=== PATIENT | female | born 1945 | race Caucasian/White ===

== ENCOUNTER 2019-03-09 18:14 | Inpatient (IN) | payer MEDICARE, OTHER ==
[~2019-03-09] VITALS: Ht 162.6 cm; Wt 93.0 kg
[2019-03-09 18:53] LABS: BASOPHILS # (AUTO) 0.1 K/uL (0.0-8.0); BASOPHILS % (AUTO) 0.6 % (0.0-2.0); EOSINOPHILS # (AUTO) 0.1 K/uL (0.0-0.7); EOSINOPHILS % (AUTO) 0.4 % (0.0-7.0); HEMATOCRIT 41.6 % (31.2-41.9); HEMOGLOBIN 13.9 g/dL (10.9-14.3); LYMPHOCYTES # (AUTO) 2.1 K/uL (20.0-40.0); LYMPHOCYTES % (AUTO) 17.1 % (20.5-51.5); MEAN CORPUSCULAR HEMOGLOBIN 31.7 uug (24.7-32.8); MEAN CORPUSCULAR HGB CONC 33 g/dL (32.3-35.6); MONOCYTES # (AUTO) 0.8 K/uL (2.0-10.0); MONOCYTES % (AUTO) 6.3 % (0.0-11.0); NEUTROPHILS # (AUTO) 9.4 K/uL (1.8-8.9); NEUTROPHILS % (AUTO) 75.6 % (38.5-71.5); PLATELET COUNT (AUTO) 193 K/uL (179-408); RED BLOOD CELL COUNT(AUTO) 4.38 MIL/uL (3.63-4.92); WHITE BLOOD COUNT (AUTO) 12.4 K/uL (3.8-11.8)
[2019-03-09] MEDS ORDERED: BISA10SU12 RC (18:56)
[2019-03-09] MEDS ORDERED: LORA0.5T PO (18:56)
[2019-03-09] MEDS ORDERED: MAGN400O6 PO (18:56)
[2019-03-09] MEDS ORDERED: DIVA250T PO (18:56)
[2019-03-09] MEDS ORDERED: ROPI1TAB4 PO (18:56)
[2019-03-09] MEDS ORDERED: AMAN100T PO (18:56)
[2019-03-09] MEDS ORDERED: ACET325T53 PO (18:56)
[2019-03-09] MEDS ORDERED: QUET100T PO (18:56)
[2019-03-09] MEDS ORDERED: SENN-168 PO (18:56)
[2019-03-09] MEDS ORDERED: MULT-213 PO (18:56)
[2019-03-09 18:59] LABS: CARBON DIOXIDE 30 mmol/L (21-32); CHLORIDE 98 mmol/L (98-107); CREATININE 1.5 mg/dL (0.6-1.3); GLUCOSE 105 mg/dL (74-106); POTASSIUM 4.1 mmol/L (3.5-5.1); UREA NITROGEN, BLOOD 36 mg/dL (7-18)
[2019-03-09 19:04] LABS: ETHANOL < 3 MG/DL (0-0)
[2019-03-09 19:05] LABS: ALANINE AMINOTRANSFERASE 16 U/L (14-59); ALKALINE PHOSPHATASE 82 U/L (50-136); ASPARTATE AMINOTRANSFERASE 18 U/L (15-37); BILIRUBIN,DIRECT 0.1 mg/dL (0.0-0.2); BILIRUBIN,TOTAL 0.3 mg/dL (0.2-1.0); TOTAL PROTEIN, SERUM 8.1 g/dL (6.4-8.2)
[2019-03-09 19:07] LABS: ACETAMINOPHEN < 2.0 ug/mL (10-30)
[2019-03-09] MEDS ORDERED: QUETIAPINE FUMARATE 100 MG TABLET ONE (20:40)
[2019-03-09] MEDS ORDERED: QUETIAPINE FUMARATE 25 MG TABLET PO ONE (20:45)
[2019-03-09] MEDS ORDERED: ACETAMINOPHEN 325 MG TABLET PO PRN (21:45)
[2019-03-09] MEDS ORDERED: ZOLPIDEM 5 MG TABLET PO PRN (21:45)
[2019-03-09] MEDS ORDERED: LORAZEPAM 1 MG TABLET PO PRN (21:45)
[2019-03-09] MEDS ORDERED: MAGNESIUM HYDROXIDE 30 ML LIQUID UDC PO PRN ×2 (21:45→22:30)
[2019-03-09] MEDS ORDERED: MAG HYDROX/AL HYDROX/SIMETH 30 ML LIQUID UDC PO PRN (21:45)
[2019-03-09] MEDS ORDERED: BISACODYL 10 MG SUPP.RECT RC PRN (22:30)
[2019-03-09 23:08] VITALS: BP 126/64
[2019-03-10] MEDS ORDERED: Medication Not On Formulary EA (Multivitamins W-Minerals (Multivitamin With Minerals) 1 PO SCH (09:00)
[2019-03-10] MEDS: NICOTINE 14 MG/24HR PATCH TD SCH (09:00)
[2019-03-10] MEDS: MULTIVIT, IRON, MIN NO. 8, FA TABLET PO SCH (09:00)
[2019-03-10] MEDS ORDERED: OLANZAPINE 10 MG VIAL IM ONE (14:30)
[2019-03-10] MEDS ORDERED: HALOPERIDOL 2 MG TABLET PO SCH (17:00)
[2019-03-10] MEDS: BENZTROPINE MESYLATE 0.5 MG TABLET PO SCH (17:00)
[2019-03-10] MEDS: DIVALPROEX 250 MG TABLET.DR PO SCH (17:00)
[2019-03-10] MEDS: ropiniROLE 1 MG TABLET PO SCH (18:00)
[2019-03-10] MEDS: SENNOSIDES 1 TABLET PO SCH (21:00)
[2019-03-10] MEDS ORDERED: HALOPERIDOL LACTATE 5 MG/1 ML VIAL IM ONE (23:00)
[2019-03-10] MEDS ORDERED: diphenhydrAMINE 50 MG/1 ML VIAL IM ONE (23:00)
[2019-03-10] MEDS ORDERED: LORAZEPAM 2 MG/1 ML VIAL IM ONE (23:00)
[2019-03-11] MEDS: NICOTINE 14 MG/24HR PATCH TD SCH (09:00)
[2019-03-11] MEDS: DIVALPROEX 250 MG TABLET.DR PO SCH ×3 (09:00→17:00)
[2019-03-11] MEDS: HALOPERIDOL LACTATE 10 MG/5 ML ORAL SOLUTION UDC PO SCH ×3 (09:00→17:00)
[2019-03-11] MEDS: MULTIVIT, IRON, MIN NO. 8, FA TABLET PO SCH (09:00)
[2019-03-11] MEDS: BENZTROPINE MESYLATE 0.5 MG TABLET PO SCH ×3 (09:00→17:00)
[2019-03-11] MEDS: ropiniROLE 1 MG TABLET PO SCH (17:46)
[2019-03-11] MEDS: SENNOSIDES 1 TABLET PO SCH (21:00)
[2019-03-12] MEDS: MULTIVIT, IRON, MIN NO. 8, FA TABLET PO SCH (09:00)
[2019-03-12] MEDS: DIVALPROEX 250 MG TABLET.DR PO SCH ×3 (09:00→17:00)
[2019-03-12] MEDS: NICOTINE 14 MG/24HR PATCH TD SCH (09:00)
[2019-03-12] MEDS: BENZTROPINE MESYLATE 0.5 MG TABLET PO SCH ×3 (09:00→17:00)
[2019-03-12] MEDS: HALOPERIDOL LACTATE 10 MG/5 ML ORAL SOLUTION UDC PO SCH ×3 (09:00→17:00)
[2019-03-12] MEDS: ropiniROLE 1 MG TABLET PO SCH (18:00)
[2019-03-12 20:07] VITALS: BP 177/96
[2019-03-12] MEDS: SENNOSIDES 1 TABLET PO SCH (20:38)
[2019-03-13] MEDS ORDERED: LORAZEPAM 2 MG/1 ML VIAL IM STA (02:47)
[2019-03-13] MEDS ORDERED: HALOPERIDOL LACTATE 5 MG/1 ML VIAL IM STA (02:47)
[2019-03-13] MEDS ORDERED: diphenhydrAMINE 50 MG/1 ML VIAL IM STA (02:48)
[2019-03-13 08:00] VITALS: BP 156/80
[2019-03-13] MEDS: MULTIVIT, IRON, MIN NO. 8, FA TABLET PO SCH (09:00)
[2019-03-13] MEDS: DIVALPROEX 250 MG TABLET.DR PO SCH ×3 (09:00→17:00)
[2019-03-13] MEDS: HALOPERIDOL LACTATE 10 MG/5 ML ORAL SOLUTION UDC PO SCH ×5 (09:00→17:00)
[2019-03-13] MEDS: NICOTINE 14 MG/24HR PATCH TD SCH ×2 (09:00→12:27)
[2019-03-13] MEDS: BENZTROPINE MESYLATE 0.5 MG TABLET PO SCH ×3 (09:00→17:00)
[2019-03-13 16:00] VITALS: BP 160/63
[2019-03-13] MEDS: ropiniROLE 1 MG TABLET PO SCH (17:03)
[2019-03-13] MEDS: SENNOSIDES 1 TABLET PO SCH (20:03)
[2019-03-14] MEDS: NICOTINE 14 MG/24HR PATCH TD SCH (08:53)
[2019-03-14] MEDS: BENZTROPINE MESYLATE 0.5 MG TABLET PO SCH ×3 (08:53→17:00)
[2019-03-14] MEDS: DIVALPROEX 250 MG TABLET.DR PO SCH ×3 (08:53→17:00)
[2019-03-14] MEDS: MULTIVIT, IRON, MIN NO. 8, FA TABLET PO SCH (08:53)
[2019-03-14] MEDS: HALOPERIDOL LACTATE 10 MG/5 ML ORAL SOLUTION UDC PO SCH ×3 (08:53→17:00)
[2019-03-14] MEDS: AMLODIPINE 5 MG TABLET PO SCH (16:15)
[2019-03-14] MEDS: ropiniROLE 1 MG TABLET PO SCH (17:09)
[2019-03-14] MEDS: SENNOSIDES 1 TABLET PO SCH (21:00)
[2019-03-15] MEDS: NICOTINE 14 MG/24HR PATCH TD SCH (09:00)
[2019-03-15] MEDS: HALOPERIDOL LACTATE 10 MG/5 ML ORAL SOLUTION UDC PO SCH ×3 (09:00→16:56)
[2019-03-15] MEDS: AMLODIPINE 5 MG TABLET PO SCH (09:00)
[2019-03-15] MEDS: MULTIVIT, IRON, MIN NO. 8, FA TABLET PO SCH (09:00)
[2019-03-15] MEDS: BENZTROPINE MESYLATE 0.5 MG TABLET PO SCH (09:00)
[2019-03-15] MEDS: DIVALPROEX 250 MG TABLET.DR PO SCH ×3 (09:00→16:56)
[2019-03-15] MEDS: HALOPERIDOL LACTATE 5 MG/1 ML VIAL IM PRN ×3 (10:01→16:57)
[2019-03-15] MEDS: BENZTROPINE MESYLATE 1 MG TABLET PO SCH (16:56)
[2019-03-15] MEDS: diphenhydrAMINE 50 MG/1 ML VIAL IM PRN (16:57)
[2019-03-15] MEDS ORDERED: BENZTROPINE MESYLATE 0.5 MG TABLET PO SCH (17:00)
[2019-03-15] MEDS: ropiniROLE 1 MG TABLET PO SCH (17:35)
[2019-03-15] MEDS: SENNOSIDES 1 TABLET PO SCH (20:07)
[2019-03-16] MEDS: DIVALPROEX 250 MG TABLET.DR PO SCH ×3 (09:00→16:59)
[2019-03-16] MEDS: BENZTROPINE MESYLATE 1 MG TABLET PO SCH ×2 (09:00→16:59)
[2019-03-16] MEDS: NICOTINE 14 MG/24HR PATCH TD SCH (09:00)
[2019-03-16] MEDS: MULTIVIT, IRON, MIN NO. 8, FA TABLET PO SCH (09:00)
[2019-03-16] MEDS: HALOPERIDOL LACTATE 10 MG/5 ML ORAL SOLUTION UDC PO SCH ×3 (09:00→17:00)
[2019-03-16] MEDS: AMLODIPINE 5 MG TABLET PO SCH (09:00)
[2019-03-16] MEDS: HALOPERIDOL LACTATE 5 MG/1 ML VIAL IM PRN ×3 (09:46→17:03)
[2019-03-16] MEDS: diphenhydrAMINE 50 MG/1 ML VIAL IM PRN ×3 (09:47→17:03)
[2019-03-16] MEDS: ropiniROLE 1 MG TABLET PO SCH (18:00)
[2019-03-16] MEDS: SENNOSIDES 1 TABLET PO SCH (20:27)
[2019-03-17] MEDS: AMLODIPINE 5 MG TABLET PO SCH (09:00)
[2019-03-17] MEDS: MULTIVIT, IRON, MIN NO. 8, FA TABLET PO SCH (09:00)
[2019-03-17] MEDS: DIVALPROEX 250 MG TABLET.DR PO SCH ×3 (09:00→17:00)
[2019-03-17] MEDS: HALOPERIDOL LACTATE 10 MG/5 ML ORAL SOLUTION UDC PO SCH ×4 (09:00→21:00)
[2019-03-17] MEDS: NICOTINE 14 MG/24HR PATCH TD SCH (09:00)
[2019-03-17] MEDS: BENZTROPINE MESYLATE 1 MG TABLET PO SCH ×2 (09:00→17:00)
[2019-03-17] MEDS: HALOPERIDOL LACTATE 5 MG/1 ML VIAL IM PRN ×2 (17:06→21:31)
[2019-03-17] MEDS: diphenhydrAMINE 50 MG/1 ML VIAL IM PRN ×2 (17:06→21:32)
[2019-03-17] MEDS ORDERED: ropiniROLE 1 MG TABLET PO SCH (18:00)
[2019-03-17 20:18] VITALS: BP 139/82
[2019-03-17] MEDS: SENNOSIDES 1 TABLET PO SCH (21:00)
[2019-03-18] MEDS: NICOTINE 14 MG/24HR PATCH TD SCH (09:00)
[2019-03-18] MEDS: BENZTROPINE MESYLATE 1 MG TABLET PO SCH ×2 (09:28→17:08)
[2019-03-18] MEDS: DIVALPROEX 250 MG TABLET.DR PO SCH ×3 (09:29→17:08)
[2019-03-18] MEDS: MULTIVIT, IRON, MIN NO. 8, FA TABLET PO SCH (09:29)
[2019-03-18] MEDS: HALOPERIDOL LACTATE 10 MG/5 ML ORAL SOLUTION UDC PO SCH ×4 (09:30→21:00)
[2019-03-18] MEDS: AMLODIPINE 5 MG TABLET PO SCH (09:35)
[2019-03-18 20:55] VITALS: BP 130/65
[2019-03-18] MEDS: SENNOSIDES 1 TABLET PO SCH (21:00)
[2019-03-18] MEDS: HALOPERIDOL LACTATE 5 MG/1 ML VIAL IM PRN (21:58)
[2019-03-18] MEDS: diphenhydrAMINE 50 MG/1 ML VIAL IM PRN (21:59)
[2019-03-19] MEDS: DIVALPROEX 250 MG TABLET.DR PO SCH ×3 (08:35→17:57)
[2019-03-19] MEDS: HALOPERIDOL LACTATE 10 MG/5 ML ORAL SOLUTION UDC PO SCH ×4 (08:36→21:00)
[2019-03-19] MEDS: AMLODIPINE 5 MG TABLET PO SCH (08:36)
[2019-03-19] MEDS: BENZTROPINE MESYLATE 1 MG TABLET PO SCH ×2 (08:36→17:57)
[2019-03-19] MEDS: NICOTINE 14 MG/24HR PATCH TD SCH (08:37)
[2019-03-19] MEDS: MULTIVIT, IRON, MIN NO. 8, FA TABLET PO SCH (08:37)
[2019-03-19] MEDS ORDERED: HALOPERIDOL DECANOATE 50 MG/1 ML AMPUL IM ONE (08:45)
[2019-03-19] MEDS ORDERED: OLANZAPINE 10 MG VIAL IM ONE (13:00)
[2019-03-19 20:25] VITALS: BP 116/84
[2019-03-19] MEDS: SENNOSIDES 1 TABLET PO SCH (21:00)
[2019-03-19] MEDS: HALOPERIDOL LACTATE 5 MG/1 ML VIAL IM PRN (21:07)
[2019-03-19] MEDS: diphenhydrAMINE 50 MG/1 ML VIAL IM PRN (21:08)
[2019-03-20] MEDS: HALOPERIDOL LACTATE 10 MG/5 ML ORAL SOLUTION UDC PO SCH ×7 (09:00→21:34)
[2019-03-20] MEDS: AMLODIPINE 5 MG TABLET PO SCH (09:00)
[2019-03-20] MEDS: NICOTINE 14 MG/24HR PATCH TD SCH (09:00)
[2019-03-20] MEDS: MULTIVIT, IRON, MIN NO. 8, FA TABLET PO SCH (12:27)
[2019-03-20] MEDS: BENZTROPINE MESYLATE 1 MG TABLET PO SCH ×2 (12:31→17:09)
[2019-03-20] MEDS: HALOPERIDOL LACTATE 5 MG/1 ML VIAL IM PRN ×2 (12:57→17:22)
[2019-03-20] MEDS ORDERED: DIVALPROEX 250 MG TABLET.DR PO SCH (17:00)
[2019-03-20] MEDS: DIVALPROEX 500 MG TABLET.DR PO SCH (17:09)
[2019-03-20] MEDS: SENNOSIDES 1 TABLET PO SCH (21:00)
[2019-03-20 21:53] VITALS: BP 139/66
[2019-03-20 23:31] LABS: *BILIRUBIN,URIN NEGATIVE (NEGATIVE); *BLOOD, URINE NEGATIVE (NEGATIVE); *COLOR,URINE YELLOW (YELLOW); *KETONES,URINE NEGATIVE (NEGATIVE); *UROBILINOGEN,URINE 0.2 E.U./dl (NORMAL); LEUKOCYTE ESTERASE ,URINE NEGATIVE (NEGATIVE); NITRITE, URINE POSITIVE (NEGATIVE); UGLUCOSE NEGATIVE (NEGATIVE)
[2019-03-20 23:38] LABS: *CLARITY,URINE SLIGHTLY CLOUHDY (CLEAR)
[2019-03-20 23:43] LABS: BACTERIA,URINE MANY /HPF (NONE SEEN); RBC,URINE NONE SEEN /HPF (0-3); SQUAMOUS EPITHELIAL CELL,UR FEW /HPF (NONE SEEN); WBC,URINE 0-3 /HPF (0-3)
[2019-03-21] MEDS: HALOPERIDOL LACTATE 10 MG/5 ML ORAL SOLUTION UDC PO SCH ×6 (08:45→21:06)
[2019-03-21] MEDS: BENZTROPINE MESYLATE 1 MG TABLET PO SCH ×2 (08:45→18:00)
[2019-03-21] MEDS: NICOTINE 14 MG/24HR PATCH TD SCH (08:46)
[2019-03-21] MEDS: MULTIVIT, IRON, MIN NO. 8, FA TABLET PO SCH (08:46)
[2019-03-21] MEDS: DIVALPROEX 500 MG TABLET.DR PO SCH ×2 (08:47→18:00)
[2019-03-21] MEDS: AMLODIPINE 5 MG TABLET PO SCH (08:48)
[2019-03-21] MEDS: diphenhydrAMINE 50 MG/1 ML VIAL IM PRN (18:05)
[2019-03-21] MEDS: HALOPERIDOL LACTATE 5 MG/1 ML VIAL IM PRN (18:05)
[2019-03-21 20:00] VITALS: BP 116/64
[2019-03-21] MEDS: SENNOSIDES 1 TABLET PO SCH (20:51)
[2019-03-22] MEDS: MULTIVIT, IRON, MIN NO. 8, FA TABLET PO SCH (09:00)
[2019-03-22] MEDS: AMLODIPINE 5 MG TABLET PO SCH (09:00)
[2019-03-22] MEDS: DIVALPROEX 500 MG TABLET.DR PO SCH ×2 (09:00→17:41)
[2019-03-22] MEDS: BENZTROPINE MESYLATE 1 MG TABLET PO SCH ×2 (09:00→17:41)
[2019-03-22] MEDS: NICOTINE 14 MG/24HR PATCH TD SCH (09:00)
[2019-03-22] MEDS: HALOPERIDOL LACTATE 10 MG/5 ML ORAL SOLUTION UDC PO SCH ×4 (10:35→21:38)
[2019-03-22] MEDS: diphenhydrAMINE 50 MG/1 ML VIAL IM PRN (10:36)
[2019-03-22] MEDS: HALOPERIDOL LACTATE 5 MG/1 ML VIAL IM PRN ×2 (10:36→14:33)
[2019-03-22] MEDS ORDERED: OLANZAPINE 10 MG VIAL IM ONE (12:00)
[2019-03-22] MEDS: CEphaleXIN 500 MG CAPSULE PO SCH (17:41)
[2019-03-22] MEDS: SENNOSIDES 1 TABLET PO SCH (21:38)
[2019-03-22] MEDS: CLONAZEPAM 1 MG TABLET PO SCH (21:38)
[2019-03-23] MEDS: AMLODIPINE 5 MG TABLET PO SCH (09:00)
[2019-03-23] MEDS ORDERED: HALOPERIDOL LACTATE 5 MG/1 ML VIAL IM PRN (09:15)
[2019-03-23] MEDS: DIVALPROEX 500 MG TABLET.DR PO SCH ×2 (09:23→16:09)
[2019-03-23] MEDS: MULTIVIT, IRON, MIN NO. 8, FA TABLET PO SCH (09:23)
[2019-03-23] MEDS: CEphaleXIN 500 MG CAPSULE PO SCH ×2 (09:23→16:09)
[2019-03-23] MEDS: BENZTROPINE MESYLATE 1 MG TABLET PO SCH ×2 (09:23→16:09)
[2019-03-23] MEDS: risperiDONE 1 MG TABLET PO SCH ×3 (09:25→16:09)
[2019-03-23] MEDS: NICOTINE 14 MG/24HR PATCH TD SCH (09:26)
[2019-03-23] MEDS: CLONAZEPAM 1 MG TABLET PO SCH (20:11)
[2019-03-23] MEDS: SENNOSIDES 1 TABLET PO SCH (20:11)
[2019-03-24] MEDS: NICOTINE 14 MG/24HR PATCH TD SCH (09:00)
[2019-03-24] MEDS: AMLODIPINE 5 MG TABLET PO SCH (09:00)
[2019-03-24] MEDS: risperiDONE 1 MG TABLET PO SCH ×3 (09:15→16:01)
[2019-03-24] MEDS: CEphaleXIN 500 MG CAPSULE PO SCH ×2 (09:15→16:01)
[2019-03-24] MEDS: DIVALPROEX 500 MG TABLET.DR PO SCH ×2 (09:15→16:01)
[2019-03-24] MEDS: MULTIVIT, IRON, MIN NO. 8, FA TABLET PO SCH (09:15)
[2019-03-24] MEDS: BENZTROPINE MESYLATE 1 MG TABLET PO SCH ×2 (09:15→16:01)
[2019-03-24] MEDS: SENNOSIDES 1 TABLET PO SCH (20:09)
[2019-03-24] MEDS: CLONAZEPAM 1 MG TABLET PO SCH (20:09)
[2019-03-24 20:41] VITALS: BP 111/66
[2019-03-25] MEDS: AMLODIPINE 5 MG TABLET PO SCH (09:00)
[2019-03-25] MEDS: risperiDONE 1 MG TABLET PO SCH ×3 (09:00→16:19)
[2019-03-25] MEDS: MULTIVIT, IRON, MIN NO. 8, FA TABLET PO SCH (09:00)
[2019-03-25] MEDS: BENZTROPINE MESYLATE 1 MG TABLET PO SCH ×2 (09:00→16:19)
[2019-03-25] MEDS: NICOTINE 14 MG/24HR PATCH TD SCH ×2 (09:00→11:03)
[2019-03-25] MEDS: CEphaleXIN 500 MG CAPSULE PO SCH ×2 (09:00→16:19)
[2019-03-25] MEDS: DIVALPROEX 500 MG TABLET.DR PO SCH ×2 (09:00→16:19)
[2019-03-25] MEDS: diphenhydrAMINE 50 MG/1 ML VIAL IM PRN (12:24)
[2019-03-25 16:02] VITALS: BP 132/63
== END 2019-03-25 18:15 | DRG 885 ==
LOC: ER 18:14 → GPS 20:40
PROVIDERS: ADMIT Psychiatry & Neurology Psychiatry; ATTEND Nurse Practitioner Acute Care
DX: F25.0 Schizoaffective disorder, bipolar type (principal); F01.51 Vascular dementia, unspecified severity, with behavioral disturbance; N17.0 Acute kidney failure with tubular necrosis; F02.81 Dementia in other diseases classified elsewhere, unspecified severity, with behavioral disturbance; N39.0 Urinary tract infection, site not specified; D68.59 Other primary thrombophilia; J44.9 Chronic obstructive pulmonary disease, unspecified; E78.5 Hyperlipidemia, unspecified; K21.9 Gastro-esophageal reflux disease without esophagitis; G20 Parkinson's disease; G47.00 Insomnia, unspecified; Z86.718 Personal history of other venous thrombosis and embolism; G25.81 Restless legs syndrome; E66.01 Morbid (severe) obesity due to excess calories; Z68.36 Body mass index [BMI] 36.0-36.9, adult; I11.9 Hypertensive heart disease without heart failure; F41.9 Anxiety disorder, unspecified; F17.210 Nicotine dependence, cigarettes, uncomplicated; Z91.19 Patient's noncompliance with other medical treatment and regimen; B96.20 Unspecified Escherichia coli [E. coli] as the cause of diseases classified elsewhere; Z74.09 Other reduced mobility; R91.8 Other nonspecific abnormal finding of lung field
CPT/HCPCS: 36415; 71045; 85025; 87077; 87086; 93005; A4663; G0480; G0480-TC; J1200; J1630; J1631; J2060; J2358; J3490